=== PATIENT | female | born 1970 | race Caucasian/White ===

== ENCOUNTER 2018-12-10 14:20 | Outpatient (CLI) | payer BC ==
--- NOTE | 2018-12-10 15:27 | MRI ---
MRI LUMBAR SPINE WITHOUT CONTRAST: Date: 12/10/18 Multiplanar, multisequential imaging lumbar spine obtained according to protocol. INDICATION: Lumbar radiculopathy. FINDINGS: Lumbar vertebra maintain normal height and alignment. The vertebral body signal appears normal. Degen erative disc signal changes are noted at L3-4, L4-5, and L5-S1. Disc space heights are preserved. No significant disc abnormality seen at L1-2 or L2-3. There is mild facet arthrosis at these levels; however, no central canal or foraminal stenosis. At L3-4, there is a broad based disc bulge/protrusion which flattens the thecal sac. Facet and ligame ntous hypertrophy is moderate. Moderate central canal stenosis. Bilateral foraminal encroachment, sli ghtly more prominent on the right due to the diffuse disc bulge and facet hypertrophy. At L4-5, there is annular fissure with central disc protrusion flattening the thecal sac. Asymmetric bulge/protrusion seen to the left with foraminal encroachment and lateral extension. Facet and ligame ntous hypertrophy. Moderate central canal stenosis. Bilateral foraminal stenosis, more prominent on t he left, as noted above. At L5-S1, mild diffuse disc bulge with evidence of small annular fissure. Prominent facet hypertrophy . Mild central canal stenosis. Left foraminal stenosis secondary to the facet hypertrophy. IMPRESSION: Abnormalities at L3-4, L4-5, and L5-S1 levels as described. POS: [facility]
--- NOTE | 2018-12-10 15:56 | RAD ---
Lumbar spine 3 views flexion and extension HISTORY: Back pain.. FINDINGS: Vertebral body heights are maintained. Minimal degenerative retrolisthesis at the L2-3 and L3-4 levels without abnormal translational motion upon flexion or extension. Little movement on the flexion/extension views. Moderate osteophytosis throughout the lower vertebral bodies. Prominent oste ophytosis throughout the lower facets. IMPRESSION: Degenerative changes lower lumbar spine. No acute osseous abnormalities are demonstrated.
--- NOTE | 2018-12-10 16:24 | MRI ---
MRI CERVICAL SPINE WITHOUT CONTRAST: Technique: Multiplanar, multisequential imaging of the cervical spine obtained. Indications: Spondylosis, cervical spine. Chronic neck pain. Comparison: MRI cervical spine, 01-02-17 and 01-13-16. FINDINGS: Post-operative changes of the cervical spine again noted. There is anterior plate and screws with fus ion at C5-6 which was noted previously. There is now also hardware at C4-5 which is difficult to deli neate due to MRI artifact. CT cervical spine could better define hardware. C2-3: No significant abnormality. C3-4: Disc bulge and spondylosis efface the anterior subarachnoid space and mildly flattens the anter ior cord. Mild left foraminal narrowing due to hypertrophic change. C4-5: Posterior spondylosis and post-operative change efface the anterior subarachnoid space and appe ar to flatten the anterior cord. Bilateral foraminal stenosis, more severe on the right. C5-6: Fusion changes. Anterior subarachnoid space is preserved. No evidence of foraminal stenosis. C6-7: Mild disc bulge and spondylosis. Mild effacement of the anterior subarachnoid space. No foramin al stenosis. IMPRESSION: 1. Post-operative changes at C4-5 and C5-6 levels with fusion at C5-6. Central canal stenosis at C3-4 and C4-5 as described above with foraminal stenosis. Consider CT cervical spine to better define tacho dware and osseous change. POS: [facility]
== END 2018-12-10 14:21 | disposition home or self-care (01) ==
LOC: SCSMRI 14:20
PROVIDERS: ATTEND Anesthesiology Pain Medicine
DX: M47.26 Other spondylosis with radiculopathy, lumbar region (principal); M47.812 Spondylosis without myelopathy or radiculopathy, cervical region; M48.02 Spinal stenosis, cervical region; M51.16 Intervertebral disc disorders with radiculopathy, lumbar region; M48.061 Spinal stenosis, lumbar region without neurogenic claudication; M48.07 Spinal stenosis, lumbosacral region; M51.9 Unspecified thoracic, thoracolumbar and lumbosacral intervertebral disc disorder; M47.817 Spondylosis without myelopathy or radiculopathy, lumbosacral region; Z98.890 Other specified postprocedural states; Z98.1 Arthrodesis status
CPT/HCPCS: 72100; 72141; 72148